=== PATIENT | female | born 1965 | race Caucasian/White ===

== ENCOUNTER → 2019-09-01 | Outpatient (CLI) | payer OTHER ==
--- NOTE | 2019-09-01 16:49 | RAD ---
EXAM: Lumbar spine, 2 views. HISTORY: Pain. Scoliosis. COMPARISON: None. FINDINGS: 2 views of the lumbar spine are obtained. There is minimal lumbar dextrocurvature centered at L1-L2. There is no significant listhesis. There is degenerative endplate remodeling with disc space narrowing, osteophytosis and facet arthropathy at L5-S1. There is additional minimal endplate remodeling at the upper and mid lumbar levels. IMPRESSION: 1. Degenerative change primarily at L5-S1. 2. Minimal lumbar dextrocurvature. Electronically signed by: Vickie Sesay MD (09/01/2019 4:47 PM) [id number]
== END | disposition home or self-care (01) ==
LOC: RAD 14:19
PROVIDERS: ATTEND Family Medicine
DX: M48.061 Spinal stenosis, lumbar region without neurogenic claudication (principal); M47.897 Other spondylosis, lumbosacral region; M12.88 Other specific arthropathies, not elsewhere classified, other specified site
CPT/HCPCS: 72100